=== PATIENT | male | born 1965 | race Caucasian/White ===

== ENCOUNTER 2018-11-07 20:38 | Inpatient (IN) | payer MEDICAID ==
[~2018-11-07] VITALS: Ht 172.7 cm; Wt 82.6 kg
[2018-11-07 20:47] VITALS: BP 144/79
--- NOTE | 2018-11-07 20:47 | NUR ---
BIB DAUGHTER NORAH. PT PRESENTS TO ED WITH RECENT C/O DIZZINESS AND MEMORY LOSS X3 DAYS. DAUGHTER STATES PT LOOSING DIRECTION MULTIPLE TIMES TO FAMILIAR AREAS. C/O SEVERE MAST X3 DAYS. 03/25. A&OX4. FOLLOWING COMMANDS. GAIT UNSTEADY. C/O CHEST PAIN UPON ED ARRIVAL. NO SOB/DYSPNEA. NO COUGH. LUNGS SOUNDS DIMINISHED IN BILAT BASES. AFEBRILE. VSS. ER MD AWARE. CONTINUE TO MONITOR.
--- NOTE | 2018-11-07 20:47 | NUR ---
TO BED # 10 AMBULATORY, REPORT GIVEN TO DANE HASSAN
[2018-11-07 21:12] LABS: BASOPHILS % (AUTO) 0.3 % (0.0-2.0); EOSINOPHILS # (AUTO) 0.1 K/uL (0-0.4); EOSINOPHILS % (AUTO) 0.6 % (0.0-4.0); HEMATOCRIT 39.7 % (36-52); HEMOGLOBIN 13.3 g/dL (12.0-18.0); LYMPHOCYTES # (AUTO) 2.2 K/uL (2.0-11.5); LYMPHOCYTES % (AUTO) 20.5 % (20.5-51.1); MEAN CORPUSCULAR HEMOGLOBIN 31 pg (27-31); MEAN CORPUSCULAR HGB CONC 34 g/dL (33-37); MEAN CORPUSCULAR VOLUME 93.9 fL (80-94); MONOCYTES # (AUTO) 0.4 K/uL (0.8-1.0); MONOCYTES % (AUTO) 4.2 % (1.7-9.3); NEUTROPHILS # (AUTO) 7.8 K/uL (1.8-7.7); NEUTROPHILS % (AUTO) 74.4 % (42.2-75.2); PLATELET COUNT (AUTO) 276 K/uL (140-450); RED BLOOD CELL COUNT(AUTO) 4.23 MIL/uL (4.20-6.10); RED CELL DISTRIBUTION WIDTH 14.9 % (11.6-13.7); WHITE BLOOD COUNT (AUTO) 10.5 K/uL (4.8-10.8)
[2018-11-07] MEDS ORDERED: PROCHLORPERAZINE 10 MG/2 ML VIAL IVP ONE (21:20)
[2018-11-07 21:22] LABS: ANION GAP 13.6 (8-16); CHLORIDE 98 mmol/L (98-107); CREATININE 0.7 mg/dL (0.7-1.3); GFR ARICAN-AMERICAN 152 mL/min (>90); GLUCOSE 122 mg/dL (74-106); POTASSIUM 3.6 mmol/L (3.5-5.1); SODIUM SERUM 134 mmol/L (136-145); UREA NITROGEN, BLOOD 6 mg/dL (7-18)
[2018-11-07 21:28] LABS: ALBUMIN 3.4 g/dL (3.4-5.0); ASPARTATE AMINOTRANSFERASE 12 U/L (15-37); TOTAL BILIRUBIN 0.6 mg/dL (0.0-1.0)
[2018-11-07] MEDS ORDERED: PIPERACILLIN/TAZOBACTAM 3.375 GM in DEXTROSE 5% 50 ML IV ONE (21:40)
[2018-11-07] MEDS ORDERED: NACL 0.9% 1,000 ML IV ONE (21:40)
[2018-11-07] MEDS ORDERED: PIPERACILLIN/TAZOBACTAM 3.375 GM VIAL IV ONE (21:54)
--- NOTE | 2018-11-07 22:00 | NUR ---
PT IN BED. MAST PRESENT. A&OX4. NO C/O DIZZINESS AT THIS TIME. VSS. IN BED WITH HOB ELEVATED. DAUGHTER AT BEDSIDE. CONTINUE TO MONITOR.
[2018-11-07 22:06] LABS: APPEARANCE,URINE CLEAR (CLEAR); BILIRUBIN,URINE NEGATIVE (NEGATIVE); BLOOD, URINE NEGATIVE (NEGATIVE); COLOR,URINE YELLOW (YELLOW); LEUKOCYTE ESTERASE ,URINE NEGATIVE (NEGATIVE); NITRITE, URINE NEGATIVE (NEGATIVE); PH,URINE 5.5 (5.0-9.0); UGLUCOSE NEGATIVE (NEGATIVE)
[2018-11-07 22:15] LABS: BARBITURATE, URINE NEG. ng/ml (NEG <=200); BENZODIAZEPINE, URINE NEG. ng/mL (NEG <=200); CANNABINOID, URINE NEG. ng/mL (NEG <=50); COCAINE, URINE NEG. ng/mL (NEG <=300); OPIATE, URINE NEG. ng/mL (NEG <=2000); PHENCYCLIDINE SCREEN,URINE NEG. ng/mL (NEG <=25)
[2018-11-07 22:17] LABS: PROTHROMBIN TIME 9.9 secs (10.8-13.4)
[2018-11-07] MEDS ORDERED: NACL 0.9% 1,000 ML IV SCH (22:33)
[2018-11-07] MEDS ORDERED: HYDROcodone/APAP 7.5/325 MG 1 TAB PO PRN (22:35)
[2018-11-07] MEDS ORDERED: ONDANSETRON 4 MG/2 ML VIAL IM/IVP PRN (22:35)
[2018-11-07] MEDS ORDERED: DOCUSATE SODIUM 100 MG GELCAP PO PRN (22:35)
[2018-11-07] MEDS ORDERED: ACETAMINOPHEN 325 MG TAB PO PRN (22:35)
[2018-11-07 23:04] LABS: CHOL/HDL RATIO 3.5 (1-4.5); MAGNESIUM 1.8 mg/dL (1.8-2.4); PHOSPHORUS 4.3 mg/dL (2.5-4.9); THYROID STIMULATING HORMONE 0.76 uIU/mL (0.34-3.74)
--- NOTE | 2018-11-07 23:15 | NUR ---
REPORT GIVEN AND CARE TRANSFERED TO [facility] RN ROOM 107A. TRANSFERED VIA RNEY WITH VSS.
[2018-11-07 23:30] VITALS: BP 129/77
--- NOTE | 2018-11-07 23:30 | NUR ---
RECEIVED BEDSIDE REPORT FROM ER NURSE DANE, PATIENT AMBULATORY TO BED, NEEDS 1 PERSON ASSIST, SKIN INTACT, IV IN RIGHT AC 20 G SL, DRESSING INTACT. PATIENT AAOX1 TO PERSON, MACANESE SPEAKING, DAUGHTER ARTURO AT BEDSIDE ABLE TO ANSWER ADMISSION QUESTIONS. DR CORTES AT BEDSIDE USING RAILROAD CAR TRUCK BUILDER VIA PHONE FOR ADMISSION QUESTIONS. LUNGS ARE DIMINISHED IN LOWER LOBES, ABDOMEN SOFT NON DISTENDED. MRSA SCREEN COLLECTED AND SEND TO LAB, PATIENT PLACED ON FALL PRECAUTIONS. V/S TAKEN ALL WITHIN NORMAL LIMITS, PATIENT DENIES PAIN.
[2018-11-07] MEDS ORDERED: DEXT 5% /NACL 0.9% 1,000 ML IV SCH (23:35)
--- NOTE | 2018-11-07 23:50 | NUR ---
STARTED IVF D5/NS AT 100 ML/HR
--- NOTE | 2018-11-08 01:22 | NUR ---
PATIENT C/O SEVERE PAIN WILL GIVE MORPHINE
[2018-11-08] MEDS: MORPHINE SULFATE 2 MG/ML SYR IVP PRN ×3 (01:23→07:25)
[2018-11-08] MEDS ORDERED: LORazepam 2 MG/ML VIAL IM/IVP SCH (02:00)
--- NOTE | 2018-11-08 02:01 | NUR ---
PATIENT KEEPS GETTING OUT OF BED, ANXIOUS, TALKED TO DR FOR ATIVAN.
[2018-11-08] MEDS ORDERED: ALBUTEROL SULFATE/IPRATROPIU 3 ML SOL IH PRN (02:05)
--- NOTE | 2018-11-08 02:09 | NUR ---
GAVE TYLENOL #3 ACCORDING TO MD KIM
[2018-11-08] MEDS ORDERED: ACETAMINOPHEN/CODEINE 300/30MG 1 TAB PO SCH (02:10)
[2018-11-08] MEDS ORDERED: LORazepam 2 MG/ML VIAL ONE ×2 (02:13→06:36)
--- NOTE | 2018-11-08 04:04 | NUR ---
PATIENT STILL C/O PAIN ASKED DR CORTES IF OKAY TO GIVE MORE MS. DR CORTES SAID OKAY.
[2018-11-08] MEDS ORDERED: DEXAMETHASONE 4 MG TAB PO SCH (04:10)
[2018-11-08] MEDS ORDERED: PIPERACILLIN/TAZOBACTAM 3.375 GM VIAL IV ONE (04:10)
[2018-11-08] MEDS: PIPER/TAZO 3.375GM/D5W PREMIX 50 ML IV SCH ×2 (04:14→12:50)
--- NOTE | 2018-11-08 04:14 | NUR ---
PATIENT GOES IN AN ARCHED POSITION, SWEATING, AND SHAKING. DR CORTES PUT IN ORDERS FOR DEXAMETHASONE.
--- NOTE | 2018-11-08 04:45 | NUR ---
PT PLACED ON TELE MONITOR
--- NOTE | 2018-11-08 04:57 | NUR ---
BP 163/[address] CORTES REASSESSED BP 179/90 HR 80
--- NOTE | 2018-11-08 05:28 | NUR ---
KALEB RESIDENT ASKED TO TRANSFER PT TO HIGHER LEVEL OF CARE.CALLED [facility] AND TALKED W/TRANSFER UNIT .FAXWD ALL PT INFORMATIONS TO THEM.THEY WILL CALL US AFTER REVIEW INFORMATIONS.ALSO CALLED THE [facility] TALKED W/ANALYST FOOD AND BEVERAGE .SHE SAID THEY HAVE NO BED.CALLED [facility] .SPOKE W/ANALYST FOOD AND BEVERAGE.SHE SAID THEY HAVE NO BED AVAILABLE.
[2018-11-08] MEDS: hydrALAZINE 20 MG/ML VIAL IVP SCH ×2 (05:48→06:11)
[2018-11-08] MEDS ORDERED: hydrALAZINE 20 MG/ML VIAL IVP PRN (06:20)
[2018-11-08] MEDS: LORazepam 2 MG/ML VIAL IVP PRN ×2 (06:30→11:40)
--- NOTE | 2018-11-08 06:33 | NUR ---
VERBAL ORDER FOR DR CORTES TO GIVE 1 MG ATIVAN NOW
[2018-11-08 06:40] LABS: RED CELL DISTRIBUTION WIDTH 15.2 % (11.6-13.7)
[2018-11-08 06:54] LABS: HEMATOCRIT 39.6 % (36-52); HEMOGLOBIN 13.2 g/dL (12.0-18.0); MAGNESIUM 1.4 mg/dL (1.8-2.4); MEAN CORPUSCULAR HEMOGLOBIN 31 pg (27-31); MEAN CORPUSCULAR HGB CONC 33 g/dL (33-37); MEAN CORPUSCULAR VOLUME 94.2 fL (80-94); PHOSPHORUS 2.9 mg/dL (2.5-4.9); PLATELET COUNT (AUTO) 305 K/uL (140-450); RED BLOOD CELL COUNT(AUTO) 4.21 MIL/uL (4.20-6.10)
[2018-11-08 06:57] LABS: ANION GAP 16.6 (8-16); CARBON DIOXIDE 22.6 mmol/L (21-32); CREATININE 0.9 mg/dL (0.7-1.3); POTASSIUM 3.2 mmol/L (3.5-5.1)
--- NOTE | 2018-11-08 06:57 | NUR ---
STARTED MITTEN RESTRAINTS ON PATIENT
--- NOTE | 2018-11-08 07:00 | NUR ---
PATIENT TO BE TRANSFERRED TO ICU
--- NOTE | 2018-11-08 07:05 | NUR ---
RECEIVED PATIENT FROM [facility] RN, HARVEY, FOR CONTINUITY OF CARE. PATIENT IS CONFUSED, UNABLE TO FOLLOW COMMANDS OR MAKE NEEDS KNOWN. PATIENT SKIN IS INTACT, HE HAS PERIPHERAL IV SITE TO RIGHT FOREARM. PATIENT IS SR ON MONITOR, ON ROOM AIR, BP IS 105/78. PATIENT IS ON SOFT WRIST RESTRAINTS. RESIDENTS ARE AWARE. HOB IS SEMI-MEDRANO. WILL CONTINUE TO MONITOR
--- NOTE | 2018-11-08 07:05 | NUR ---
TRANSFERRED PATIENT TO ICU FOR CONTINUITY OF CARE. PATIENT STABLE.
--- NOTE | 2018-11-08 07:10 | NUR ---
NOTIFIED CHARGE ICU NURSE TO CALL DAUGHTER ARTURO THAT PATIENT WAS TRANSFERRED TO ICU.
[2018-11-08 07:12] LABS: LYMPHOCYTES % (MANUAL) 5 % (20-46); MONOCYTES % (MANUAL) 5 % (5-12)
[2018-11-08 08:00] VITALS: BP 112/82
--- NOTE | 2018-11-08 08:06 | NUR ---
DR. CHEN AND RESIDENT PHYSICIANS IN TO SEE AND EXAMINE PATIENT, UPDATED ON PATIENT'S CONDITION. RESIDENTS ARE AWARE TO PATIENT IS TO ALTERED FOR CT OF CHEST WITH CONTRAST.
--- NOTE | 2018-11-08 08:07 | NUR ---
PATIENT HAS BEEN SCREENED AND CATEGORIZED HIGH NUTRITION RISK. PATIENT WILL BE SEEN WITHIN 1-2 DAYS OF ADMISSION. 11/08/18-11/09/[address]
--- NOTE | 2018-11-08 08:50 | NUR ---
DR. OSPINA IS HERE TO SEE AND EXAMINE PATIENT, UPDATED ON PATIENT'S CONDITION. RECEIVED ORDERS FOR HALDOL PRN FOR RESTLESSNESS.
[2018-11-08] MEDS ORDERED: LISINOPRIL 10 MG TAB PO SCH (09:00)
[2018-11-08] MEDS ORDERED: LACTOBACILLUS RHAMNOSUS GG 1 EACH CAP PO SCH (09:00)
[2018-11-08] MEDS: DEXAMETHASONE 4 MG/ML VIAL IVP SCH ×2 (09:13→12:47)
[2018-11-08] MEDS: HALOPERIDOL IM 5 MG/ML VIAL IVP PRN ×2 (09:21→15:37)
[2018-11-08 10:00] VITALS: BP 162/75
--- NOTE | 2018-11-08 10:04 | NUR ---
INSERTED RAY CATHETER 16 FR, PATIENT TOLERATED WELL. 1000ML URINE OUTPUT NOTED.
[2018-11-08] MEDS ORDERED: MAG SULF 2000 MG/WATER PREMIX 50 ML IV SCH (10:30)
[2018-11-08] MEDS ORDERED: LISI10TA11 PO (10:52)
[2018-11-08] MEDS ORDERED: PIPE1SOL IV (10:52)
[2018-11-08] MEDS ORDERED: LACT10CA1 PO (10:52)
[2018-11-08] MEDS ORDERED: ACET-1182 PO (10:52)
[2018-11-08] MEDS ORDERED: DEXA4VIA11 IVP (10:52)
--- NOTE | 2018-11-08 10:52 | NUR ---
CM NOTE RECEIVED ORDER TO TRANSFER TO HIGHER LEVEL OF CARE. PER ARTURO OF [facility], THEY HAVE NOT RECEIVED A CLINICAL PACKET FROM [facility]. FAXED ORDER TO TRANSFER TO HIGHER LEVEL OF CARE, FACESHEET AND CLINICAL PACKET TO: [facility]
[2018-11-08 12:00] VITALS: BP 157/71
--- NOTE | 2018-11-08 12:00 | NUR ---
PATIENT'S DAUGHTER IS HERE, DR. LARIOS IS HERE TO UPDATE ON PATIENT'S POC.
--- NOTE | 2018-11-08 12:14 | NUR ---
PATIENT'S DAUGHTER IS HERE WITH PATIENT'S COUSINS. STATES THAT SHE WOULD LIKE THEM TO BE ON THE LIST FOR PATIENT'S EMERGENCY CONTACT
--- NOTE | 2018-11-08 12:35 | NUR ---
11/08/18 RD INITIAL ASSESSMENT COMPLETED PLEASE REFER TO NUTRITION ASSESSMENT UNDER CARE ACTIVITY FOR ESTIMATED NUTRITIONAL NEEDS. 1. CONTINUE NPO MEDICALLY APPROPRIATE 2. CONTINUE IV FLUIDS FOR HYDRATION 3. RD TO FOLLOW-UP 2-3 DAYS, HIGH RISK ASIA FOSS RD
[2018-11-08] MEDS ORDERED: POTASSIUM CHLORIDE 40 MEQ, LIDOCAINE MPF 1% - 5 mL VIAL 25 MG in NACL 0.9% 250 ML IV SCH (13:00)
--- NOTE | 2018-11-08 13:13 | NUR ---
CM NOTE PER YASMEEN OF [facility]# [phone], THEIR NEUROSURGEON DR. POLLARD HAS ACCEPTED THE PATIENT. PER YASMEEN, THEY ARE ALREADY LOOKING FOR A BED FOR THIS PATIENT AND ONCE THEY HAVE THE BED AVAILABLE WHICH IS MOST LIKELY ANY TIME TODAY, SHE WILL GIVE [facility] A CALL. I GAVE YASMEEN THE NUMBER TO THE NURSING STATION WHERE THE PATIENT IS IN CASE SHE CALLS AT A LATER TIME. ICU CHARGE NURSE CARLITA CEJA.
[2018-11-08 14:00] VITALS: BP 146/64
--- NOTE | 2018-11-08 14:28 | NUR ---
CM NOTE PER YASMEEN OF [facility] PH# [phone], THE PATIENT CAN GO TO [phone], ACCEPTING DOCTOR IS DR. CHEN AND ACCEPTING NEUROSURGEON IS DR. POLLARD, NUMBER TO CALL FOR REPORT PH# [phone]. BARRETT HASSAN AND ICU CHARGE NURSE CARLITA CEJA.
--- NOTE | 2018-11-08 15:01 | NUR ---
ENDORSED CONTINUITY OF CARE WITH MO SNELL FROM [facility]. AWARE THAT PATIENT WILL BE PICKED UP AT [phone]
[2018-11-08 15:11] VITALS: BP 145/83
--- NOTE | 2018-11-08 15:35 | NUR ---
ADMINISTERED HALDOL PRN 2MG IVP FOR RESTLESSNESS. PATIENT TOLERATED WELL
--- NOTE | 2018-11-08 15:50 | NUR ---
PATIENT WAS PICKED UP BY [facility] AND WILL BE TRANSFERRED TO [facility]. NO SIGNS OF DISTRESS NOTED. DISCHARGE PACKET SIGNED BY PATIENT'S DAUGHTER ARTURO. COPY OF SIGNED FORMS INSIDE PATIENT'S CHART.
== END 2018-11-08 15:50 | disposition short-term general hospital (02) | DRG 58 ==
LOC: MED 20:38 → MTU 22:37 → MIC 11-08 07:05
PROVIDERS: ADMIT General Practice; ATTEND General Practice
DX: G93.0 Cerebral cysts (principal); G93.41 Metabolic encephalopathy; J18.9 Pneumonia, unspecified organism; E87.1 Hypo-osmolality and hyponatremia; J98.4 Other disorders of lung; F17.210 Nicotine dependence, cigarettes, uncomplicated
CPT/HCPCS: 36415; 70450; 71045; 80048; 80053; 80305; 81003; 82140; 82150; 83036; 83605; 83690; 83735; 83880; 84100; 84443; 84484; 85025; 85610; 85730; 86886; 86900; 86901; 87040; 87081; 87086; 93005; 96361; 96365; 96375; 99285; G0482; J0360; J0780; J1100; J1630; J2001; J2060; J2270; J2543; J3475; J3480; J7030; J7042; Q0092